=== PATIENT | female | born 2000 | race American Indian/Alaskan Native ===

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

== ENCOUNTER 2021-11-09 21:15 | Emergency (ER) | payer SELFPAY ==
--- NOTE | 2021-11-10 09:34 | Emergency Department Report ---
Blank Doc - Documentation Documentation: 21-year-old female presents to the ED with a history of schizophrenia and psyc hosocial affect disorder complaining suicidal ideation. States she was recently discharged from [facility]. States that she is homeless. States that due to her homeless she wants to jump out of a building. She states do not have any homicidal ideation at present time. She also has a history of seizure. This initial assessment/diagnostic orders/clinical plan/treatment(s) is/are subject to change based on patients health status, clinical progression and re- assessment by fellow clinical providers in the ED. Further treatment and workup at subsequent clinical providers discretion. Patient/guardian urged not to elope from the ED as their condition may be serious if not clinically assessed and managed.
[2021-11-10 09:52] LABS: Hematocrit 37.2 % (30.3-42.9); Mean Corpuscular HGB Conc 32 % (30-34); Mean Corpuscular Volume 87 fl (79-97); Platelet Count 150 K/mm3 (140-440); Red Blood Count 4.27 M/mm3 (3.65-5.03); Red Cell Distribution Width 13.5 % (13.2-15.2)
[2021-11-10 10:08] LABS: Bilirubin,Urine NEG (Negative); Blood,Urine NEG (Negative); Color,Urine Straw (Yellow); Protein,Urine <15 mg/dL mg/dL (Negative); Urobilinogen,Urine < 2.0 mg/dL (<2.0)
[2021-11-10 10:16] LABS: Amphetamine Screen,Urine Negative; Benzodiazepines Screen,Urine Negative; Cocaine Screen,Urine Negative; Methadone Screen,Urine Negative; Opiate Screen,Urine Negative
[2021-11-10 10:39] LABS: Cannabinoid Screen,Urine Positive
[2021-11-10 11:12] LABS: Alanine Aminotransferase 15 units/L (7-56); BUN/Creatinine Ratio 15; Blood Urea Nitrogen 6 mg/dL (7-17); Calcium 8.7 mg/dL (8.4-10.2); Hemolysis Index 15
--- NOTE | 2021-11-10 13:07 | Emergency Department Report ---
ED Psych HPI - General Chief Complaint: Psych Stated Complaint: FAINT/FEELING OF SEIZURE Time Seen by Provider: 11/10/21 09:52 Source: patient Mode of arrival: Ambulatory - History of Present Illness Initial Comments: PT STATES THAT SHE FEELS LIKE SHE IS GOING TO HAVE A SEIZURE, STATES LAST SEIZURE X 1 WEEK AGO. STATES OFF MEDS BUT UNSURE OF MEDICATIONS THAT SHE TAKES. PT TEARFUL AT TRIAGE STATING THAT SHE IS HOMELESS AND HAVING ANXIETY. PT DENIES SI, HI, AND HALLUCINATIONS MD Complaint: suicidal ideation -: days(s) Associated Psychiatric Symptoms: depression, suicidal ideation History of same: Yes Quality: constant If Self Harm: admits thoughts of - Related Data Home Medications Medication Instructions Recorded Confirmed Last Taken OLANZapine [Zyprexa] 5 mg PO AC 04/09/20 04/09/20 Unknown Previous Rx's Medication Instructions Recorded Last Taken Type Divalproex Sodium 500 mg PO BID #60 04/13/20 Unknown Rx FLUoxetine [PROzac] 10 mg PO QDAY #30 tablet 04/13/20 Unknown Rx OLANzapine [Zyprexa] 10 mg PO QHS #30 tab 04/13/[address] [DepaKOTE DR] 500 mg PO BID #60 tablet 11/12/21 Unknown Rx Trazodone HCl 50 mg PO QHS #30 11/12/21 Unknown Rx risperiDONE [RisperDAL] 0.5 mg PO BID #60 11/12/21 Unknown Rx Allergies Allergy/AdvReac Type Severity Reaction Status Date / Time amoxicillin [From Augmentin] Allergy Unknown Verified 11/25/19 11:13 clavulanic acid Allergy Unknown Verified 11/25/19 11:13 [From Augmentin] Penicillins Allergy Unknown Verified 12/20/19 21:37 ED Review of Systems ROS: Stated complaint: FAINT/FEELING OF SEIZURE Other details as noted in HPI Constitutional: denies: chills, fever Eyes: denies: eye pain, eye discharge, vision change ENT: denies: ear pain, throat pain Respiratory: denies: cough, shortness of breath, wheezing Cardiovascular: denies: chest pain, palpitations Endocrine: no symptoms reported Gastrointestinal: denies: abdominal pain, nausea, diarrhea Genitourinary: denies: urgency, dysuria, discharge Musculoskeletal: denies: back pain, joint swelling, arthralgia Skin: denies: rash, lesions Neurological: denies: headache, weakness, paresthesias Psychiatric: denies: anxiety, depression Hematological/Lymphatic: denies: easy bleeding, easy bruising ED Past Medical Hx - Past Medical History Previous Medical History?: No Hx Hypertension: No Hx Psychiatric Treatment: Yes (Psychosis) - Social History Smoking Status: Never Smoker Substance Use Type: Marijuana, Other - Medications Home Medications: Home Medications Medication Instructions Recorded Confirmed Last Taken Type OLANZapine [Zyprexa] 5 mg PO AC 04/09/20 04/09/20 Unknown History Divalproex Sodium 500 mg PO BID #60 04/13/20 Unknown Rx FLUoxetine [PROzac] 10 mg PO QDAY #30 tablet 04/13/20 Unknown Rx OLANzapine [Zyprexa] 10 mg PO QHS #30 tab 04/13/[address] [DepaKOTE DR] 500 mg PO BID #60 tablet 11/12/21 Unknown Rx Trazodone HCl 50 mg PO QHS #30 11/12/21 Unknown Rx risperiDONE [RisperDAL] 0.5 mg PO BID #60 11/12/21 Unknown Rx ED Physical Exam - General Limitations: No Limitations General appearance: alert, in no apparent distress - Head Head exam: Present: atraumatic, normocephalic - Eye Eye exam: Present: normal appearance - ENT ENT exam: Present: mucous membranes moist - Neck Neck exam: Present: normal inspection - Respiratory Respiratory exam: Present: normal lung sounds bilaterally. Absent: respiratory distress - Cardiovascular Cardiovascular Exam: Present: regular rate, normal rhythm. Absent: systolic murmur, diastolic murmur, rubs, gallop - GI/Abdominal GI/Abdominal exam: Present: soft, normal bowel sounds - Extremities Exam Extremities exam: Present: normal inspection - Back Exam Back exam: Present: normal inspection - Neurological Exam Neurological exam: Present: alert, oriented X3 - Psychiatric Psychiatric exam: Present: depressed, suicidal ideation - Skin Skin exam: Present: warm, dry, intact, normal color. Absent: rash ED Course Vital Signs 11/09/21 11/10/21 11/10/21 21:23 08:03 14:57 Temperature 98.2 F 97.6 F 98.0 F Pulse Rate 94 H 82 Respiratory 18 18 16 Rate Blood Pressure 104/78 Blood Pressure 111/66 [Left] O2 Sat by Pulse 97 98 100 Oximetry 11/10/21 11/11/21 11/11/21 18:25 10:47 14:46 Temperature 98.4 F 98.2 F 98.2 F Pulse Rate 68 83 88 Respiratory 14 16 14 Rate Blood Pressure Blood Pressure 101/45 102/76 103/50 [Left] O2 Sat by Pulse 100 100 99 Oximetry 11/11/21 11/12/21 11/12/21 22:10 05:13 10:10 Temperature 99.6 F 98.0 F Pulse Rate 102 H 88 Respiratory 16 16 Rate Blood Pressure Blood Pressure 100/60 99/74 [Left] O2 Sat by Pulse 97 96 97 Oximetry 11/12/21 12:45 Temperature 98.0 F Pulse Rate 88 Respiratory 16 Rate Blood Pressure Blood Pressure 99/74 [Left] O2 Sat by Pulse 97 Oximetry ED Medical Decision Making - Lab Data Result diagrams: 11/10/21 09:07 11/10/21 09:07 Critical care attestation.: If time is entered above; I have spent that time in minutes in the direct care of this critically ill patient, excluding procedure time. ED Disposition Clinical Impression: Suicidal ideation Disposition: 01 HOME / SELF CARE / HOMELESS Is pt being admited?: No Does the pt Need Aspirin: No Condition: Stable Instructions: Persistent Depressive Disorder, Adult Additional Instructions: Professional and Agency Contacts To help [facility] (17/12) [place] Crisis Line: Suicide Prevention Line: Crisis Text Line: Text START to 144556 Emergency: 911 Outpatient [facility] Behavioral Health Resources: [facility]: [facility] [address] [place] [id number] [facility] [address] [place] [address] Saturday thru Saturday - 8am - 5pm Call to schedule an assessment for mental health and substance abuse programs [facility] Address: [address] [place] [address] Saturday thru Saturday- 7am-2pm [facility] Address: [address] [place] [address] Saturday thru Saturday: 8:30AM-5PM [facility] Address: [address] [place] [id number] Prescriptions: Trazodone HCl 50 mg PO QHS #30 Divalproex [DepaKOTE DR] 500 mg PO BID #60 tablet risperiDONE [RisperDAL] 0.5 mg PO BID #60 Referrals: PRIMARY CARE, [Primary Care Provider] - 3-5 Days
--- NOTE | 2021-11-10 14:00 | Progress Note ---
Subjective - Reason for Consult Consult date: 11/10/21 Reason for consult: SI - Chief Complaint Chief complaint: The patient was seen today. She is withdrawn. Her affect is flat. She is tearful. The patient says she is suicidal, because "that's all I know to do." She says she was at [place] but had to leave because she needed to get back to her job. The patient denies hallucinations of any kind. She says she's homeless, and trying to get to [place] with her grandmother. The patient says she has been off her meds. I spoke to the patient's mother at her request. The mom says the patient is mentally unstable and needs help. She says Emily has been making erratic decisions and not taking her meds. She says Emily has also been verbalizing wanting to end her life. Will start medications and recommend acute psychiatric inpatient treatment for stabilization. REVIEW OF SYSTEMS Constitutional: Negative for weight loss ENT: Negative for stridor Respiratory: Negative for cough or hemoptysis All other systems reviewed and are negative MENTAL STATUS EXAMINATION General Appearance: Dressed appropriately Behavior: calm and cooperative Mood: depressed Affect and affective range: flat Thought Process: Goal directed Thought content: SI Speech: Normal tone and pace Suicidal Ideation: Yes Homicidal Ideation: Denies Hallucinations: Denies Delusions: None elicited Insight and Judgment: Limited insight and judgment Memory: Limited Attention: Distracted Orientation: Alert, oriented Diagnoses: Bipolar Treatment Plan Depakote DR 500mg po BID Risperidone 0.5mg po BID Trazodone 50mg po qhs PSYCHOTHERAPY: Supportive psychotherapy provided MEDICAL: Per primary team DELIRIUM PRECAUTIONS: Please re-orient patient frequently, keep lights on during the day, and minimize benzodiazepines and opiates as these medications could worsen patient's confusion. 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 Thank you for the consult. Case staffed with Dr. Rajput Mental Status Exam - Vital signs Last Vital Signs Temp 97.6 F 11/10/21 08:03 Pulse 82 11/10/21 08:03 Resp 18 11/10/21 08:03 BP 111/66 11/10/21 08:03 Pulse Ox 98 11/10/21 08:03
[2021-11-10] MEDS: DIVALPROEX DR 500 MG TAB PO SCH ×2 (14:34→22:36)
[2021-11-10] MEDS: risperiDONE 0.25 MG TAB PO SCH ×2 (14:34→22:37)
[2021-11-10] MEDS ORDERED: DIVALPROEX DR 250 MG TAB PO SCH (15:00)
[2021-11-10] MEDS: traZODone 50 MG TAB PO SCH (22:36)
--- NOTE | 2021-11-11 10:13 | Progress Note ---
Subjective - Reason for Consult Consult date: 11/11/21 Reason for consult: SI - Chief Complaint Chief complaint: The patient was seen today. She still endorses suicidal thoughts, and says she "just want to go to sleep and not deal with anything." She denies hallucinations. She says she is "depressed and doesn't know how to help herself." Will continue to treat and stabilize the patient. REVIEW OF SYSTEMS Constitutional: Negative for weight loss ENT: Negative for stridor Respiratory: Negative for cough or hemoptysis All other systems reviewed and are negative MENTAL STATUS EXAMINATION General Appearance: Dressed appropriately Behavior: calm and cooperative Mood: depressed Affect and affective range: flat Thought Process: Goal directed Thought content: SI Speech: Normal tone and pace Suicidal Ideation: Yes Homicidal Ideation: Denies Hallucinations: Denies Delusions: None elicited Insight and Judgment: Limited insight and judgment Memory: Limited Attention: Distracted Orientation: Alert, oriented Diagnoses: Bipolar Treatment Plan Depakote DR 500mg po BID Risperidone 0.5mg po BID Trazodone 50mg po qhs PSYCHOTHERAPY: Supportive psychotherapy provided MEDICAL: Per primary team DELIRIUM PRECAUTIONS: Please re-orient patient frequently, keep lights on during the day, and minimize benzodiazepines and opiates as these medications could wo rsen patient's confusion. 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 Thank you for the consult. Case staffed with Dr. Rajput Mental Status Exam - Vital signs Last Vital Signs Temp 98.4 F 11/10/21 18:25 Pulse 68 11/10/21 18:25 Resp 14 11/10/21 18:25 BP 101/45 11/10/21 18:25 Pulse Ox 100 11/10/21 18:25
[2021-11-11] MEDS: risperiDONE 0.25 MG TAB PO SCH ×2 (12:58→21:56)
[2021-11-11] MEDS: DIVALPROEX DR 500 MG TAB PO SCH ×2 (12:58→21:56)
[2021-11-11] MEDS ORDERED: IBUPROFEN 800 MG TAB PO ONE (21:27)
[2021-11-11] MEDS: traZODone 50 MG TAB PO SCH (21:56)
--- NOTE | 2021-11-12 10:33 | Progress Note ---
Subjective - Reason for Consult Consult date: 11/12/21 Reason for consult: depression - Chief Complaint Chief complaint: The patient was seen today. She is lying down. She says she is depressed because she misses her mom. She says "I'm just laying here." She denies SI/HI. The patient says she is homeless and wants to [place] with her grandmother. I talk to the patient and remind her that her mom stated she would get her to [place]. She says "but my mom doesn't get paid until next week." The patient denies hallucinations of any kind. She gave me permission to call her mom and her dad, in which I did at bedside, but did not receive an answer after multiple attempts to each number. The patient no longer meets criteria for inpatient psychiatric treatment. Will give her scripts and resources to be managed on an outpatient basis. REVIEW OF SYSTEMS Constitutional: Negative for weight loss ENT: Negative for stridor Respiratory: Negative for cough or hemoptysis All other systems reviewed and are negative MENTAL STATUS EXAMINATION General Appearance: Dressed appropriately Behavior: calm and cooperative Mood: depressed Affect and affective range: restricted Thought Process: Goal directed Thought content: None Speech: Normal tone and pace Suicidal Ideation: Denies Homicidal Ideation: Denies Hallucinations: Denies Delusions: None elicited Insight and Judgment: Limited insight and judgment Memory: Limited Attention: attentive Orientation: Alert, oriented Diagnoses: Bipolar Treatment Plan d/c [address] 500mg po BID Risperidone 0.5mg po BID Trazodone 50mg po qhs PSYCHOTHERAPY: Supportive psychotherapy provided MEDICAL: Per primary team DELIRIUM PRECAUTIONS: Please re-orient patient frequently, keep lights on during the day, and minimize benzodiazepines and opiates as these medications could worsen patient's confusion. 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 The patient can be managed from an outpatient basis. The patient understands that if SI/HI arise she is to seek immediate assistance. The gas tender to further discuss safety plan and give the patient all necessary resources for continuity of mental health, including housing options. The patient to follow up with outpatient psych in 7 to 14 days upon discharge Please give transportation pass if needed Will sign off. Thank you for the consult. Case staffed with Dr. Rajput Mental Status Exam - Vital signs Last Vital Signs Temp 99.6 F 11/11/21 22:10 Pulse 102 H 11/11/21 22:10 Resp 16 11/11/21 22:10 BP 100/60 11/11/21 22:10 Pulse Ox 96 11/12/21 05:13
[2021-11-12] MEDS: risperiDONE 0.25 MG TAB PO SCH (10:43)
[2021-11-12] MEDS: DIVALPROEX DR 500 MG TAB PO SCH (10:43)
[2021-11-12 12:18] VITALS: BP 99/74
== END 2021-11-12 12:45 | disposition home or self-care (01) ==
LOC: ED 21:15
DX: R45.851 Suicidal ideations (principal); F12.90 Cannabis use, unspecified, uncomplicated; Z88.0 Allergy status to penicillin; Z88.8 Allergy status to other drugs, medicaments and biological substances; Z20.822 Contact with and (suspected) exposure to COVID-19
CPT/HCPCS: 36415; 80053; 80307; 81001; 85027; 99284; U0003; 80320; G0480